=== PATIENT | female | born 1995 | race Caucasian/White ===

== ENCOUNTER 2019-06-21 15:22 | Emergency (ER) | payer OTHER ==
--- NOTE | 2019-06-21 15:56 | ER Document Report ---
ED Medical Screen (RME) - General Chief Complaint: Abdominal Pain Stated Complaint: ABDOMINAL PAIN Time Seen by Provider: 06/21/19 15:54 Primary Care Provider: IZAIAH PEREZ MD [Primary Care Provider] - Follow up as needed TRAVEL OUTSIDE OF THE [place] IN LAST 30 DAYS: No - HPI Notes: 06/21/19 15:55 Patient is a 23-year-old female with no significant past medical history who p resents complaining of lower pelvic/abdominal pain that is been somewhat intermittent, but present since yesterday. She has not noticed any vaginal discharge, odor, or bleeding. Last menstrual cycle was 4 months ago which is a little longer than her normal irregularity. She is able to eat and drink without difficulty's, but has had a decreased p.o. intake. She is urinating normally and having normal bowel movements. She did take a test about a month ago which was negative. Denies HELTON, fever, neck pain, URI, CP, SOB, n/v/d, dysuria, back pain, or rash. I have treated and performed a rapid initial assessment of this patient. A comprehensive ED assessment and evaluation of the patient, analysis of test results and completion of medical decision making process will be conducted by additional ED providers. PHYSICAL EXAMINATION: GENERAL: Well-appearing, well-nourished and in no acute distress. A&Ox4. Answers questions appropriately. LUNGS: Breath sounds clear to auscultation bilaterally and equal. No wheezes rales or rhonchi. HEART: Regular rate and rhythm without murmurs, rubs, gallops. ABDOMEN: Soft, nondistended abdomen. No guarding, no rebound. Normal bowel sounds present. No CVA tenderness bilaterally. + mild lower abd/pelvic tenderness (cannot elicit thorough abd exam w/o bed, however). - Related Data Allergies/Adverse Reactions: all cillins Allergy (Uncoded 06/21/19 15:23) Past Medical History Pulmonary Medical History: Reports: Hx Asthma Past Surgical History: Reports: Hx Tonsillectomy - Immunizations Immunizations up to date: Yes Hx Diphtheria, Pertussis, Tetanus Vaccination: Yes Physical Exam - Vital signs Vitals: Temp Pulse Resp BP Pulse Ox 98.8 F 83 20 123/73 99 06/21/19 15:31 06/21/19 15:31 06/21/19 15:31 06/21/19 15:31 06/21/19 15:31 Course - Vital Signs Vital signs: Temp Pulse Resp BP Pulse Ox 98.8 F 83 20 123/73 99 06/21/19 15:31 06/21/19 15:31 06/21/19 15:31 06/21/19 15:31 06/21/19 15:31 Doctor's Discharge - Discharge Referrals: IZAIAH PEREZ MD [Primary Care Provider] - Follow up as needed
--- NOTE | 2019-06-21 16:55 | RADIOLOGY REPORT (SQ) ---
EXAM DESCRIPTION: U/S 1TRIMESTER/1GEST W/DOPPLER COMPLETED DATE/TIME: 06/21/2019 4:39 pm REASON FOR STUDY: pelvic cramps/lower abd pain COMPARISON: None. TECHNIQUE: Transvaginal static and realtime grayscale images acquired of the pelvis. Additional avinash cted spectral and color Doppler images recorded. All images stored on PACs. bHCG: Not applicable. CLINICAL DATES: LMP about 4 months ago LIMITATIONS: None. FINDINGS: FETUS: Single Living intrauterine . ULTRASOUND EGA: 13 weeks 5 days ULTRASOUND TOI: 12/22/2019 EFW: Not applicable less than 20 weeks. CRL: 7.7 cm FHR: 152 beats per minute. SURVEY: Too early to assess. AMNIOTIC FLUID: Adequate amount. PLACENTA: Posterior SUBCHORIONIC BLEED: No SIZE OF BLEED: Not applicable. UTERUS: No masses. No anomalies. CERVICAL LENGTH: 2.2 cm. Closed. RIGHT ADNEXA: Normal ovary with normal vascular flow. 3.2 x 3 x 1.3 cm. No adnexal free fluid. No adnexal masses. LEFT ADNEXA: Normal ovary with normal vascular flow. 2.4 x 1.7 x 1.9 cm. No adnexal free fluid. No adnexal masses. FREE FLUID: None. OTHER: No other significant finding. IMPRESSION: LIVING INTRAUTERINE . EGA 13 weeks 5 days. Trimester of : Second trimester - 13 weeks 1 day to 27 weeks 6 days. TECHNICAL DOCUMENTATION: JOB ID: [id number] [employer]- All Rights Reserved rev Reading location - IP/workstation name: [email or web address]
[2019-06-21 16:56] LABS: MEAN CORPUSCULAR VOLUME 86 fl (80-97); RED CELL DISTRIBUTION WIDTH 14.2 % (11.5-14.0); TOTAL CELLS COUNTED % (AUTO) 100 %
[2019-06-21 16:59] LABS: ABSOLUTE BASOPHILS # (AUTO) 0.1 10^3/uL (0.0-0.2); ABSOLUTE EOSINOPHILS # (AUTO) 0.1 10^3/uL (0.0-0.6); ABSOLUTE LYMPHOCYTES (AUTO) 1.6 10^3/uL (0.5-4.7); ABSOLUTE MONOCYTES (AUTO) 0.5 10^3/uL (0.1-1.4); ABSOLUTE NEUT (AUTO) 10.2 10^3/uL (1.7-8.2); BASOPHILS % (AUTO) 0.4 % (0-2); EOSINOPHILS % (AUTO) 0.4 % (0-6); HEMATOCRIT 41.4 % (36.0-47.0); HEMOGLOBIN 14.3 g/dL (12.0-15.5); LYMPHOCYTES % (AUTO) 12.9 % (13-45); MEAN CORPUSCULAR HEMOGLOBIN 29.8 pg (27.0-33.4); MEAN CORPUSCULAR HGB CONC 34.4 g/dL (32.0-36.0); MONOCYTES % (AUTO) 4.3 % (3-13); PLATELET COUNT 299 10^3/uL (150-450); RED BLOOD COUNT 4.79 10^6/uL (3.72-5.28); WHITE BLOOD COUNT 12.4 10^3/uL (4.0-10.5)
[2019-06-21 17:01] LABS: APPEARANCE,URINE SLIGHTLY-CLOUDY; BILIRUBIN,URINE NEGATIVE (NEGATIVE); COLOR,URINE YELLOW; GLUCOSE, URINE NEGATIVE (NEGATIVE); KETONES,URINE NEGATIVE (NEGATIVE); LEUKOCYTE ESTERASE,URINE TRACE (NEGATIVE); NITRITE,URINE NEGATIVE (NEGATIVE); PROTEIN,URINE NEGATIVE (NEGATIVE); UROBILINOGEN,URINE NEGATIVE mg/dL (<2.0)
[2019-06-21 17:23] LABS: ALBUMIN 4.1 g/dL (3.5-5.0); ALKALINE PHOSPHATASE 79 U/L (38-126); ANION GAP 9 (5-19); ASPARTATE AMINO TRANSFERASE 24 U/L (14-36); BILIRUBIN,DIRECT 0.2 mg/dL (0.0-0.4); BILIRUBIN,TOTAL 0.7 mg/dL (0.2-1.3); BLOOD UREA NITROGEN 8 mg/dL (7-20); CALCIUM 9.6 mg/dL (8.4-10.2); CARBON DIOXIDE 25 mmol/L (22-30); CHLORIDE 103 mmol/L (98-107); GLUCOSE 84 mg/dL (75-110); TOTAL PROTEIN 7.2 g/dL (6.3-8.2)
--- NOTE | 2019-06-21 17:43 | ER Document Report ---
ED General - General Chief Complaint: Abdominal Pain Stated Complaint: ABDOMINAL PAIN Time Seen by Provider: 06/21/19 15:54 Primary Care Provider: IZAIAH PEREZ MD [ACTIVE STAFF] - Follow up as needed Notes: 23-year-old female with no significant past medical history who presents complaining of lower pelvic/abdominal pain that is been somewhat intermittent, but present since yesterday. She has not noticed any vaginal discharge, odor, or bleeding. Last menstrual cycle was 4 months ago which is a little longer than her normal irregularity. She is able to eat and drink without difficulty's, but has had a decreased p.o. intake. She is urinating normally and having normal bowel movements. She did take a test about a month ago which was negative. Denies [place], fever, neck pain, URI, CP, SOB, n/v/d, dysuria, back pain, or rash. TRAVEL OUTSIDE OF THE [place] IN LAST 30 DAYS: No - Related Data Allergies/Adverse Reactions: all cillins Allergy (Uncoded 06/21/19 15:23) Past Medical History - Social History Smoking Status: Never Smoker Frequency of alcohol use: Occasional Drug Abuse: None Family History: Reviewed & Not Pertinent Patient has suicidal ideation: No Patient has homicidal ideation: No Pulmonary Medical History: Reports: Hx Asthma Renal/ Medical History: Denies: Hx Peritoneal Dialysis Past Surgical History: Reports: Hx Tonsillectomy - Immunizations Immunizations up to date: Yes Hx Diphtheria, Pertussis, Tetanus Vaccination: Yes Review of Systems - Review of Systems Constitutional: See HPI EENT: No symptoms reported Cardiovascular: See HPI Respiratory: See HPI Gastrointestinal: See HPI Genitourinary: See HPI Female Genitourinary: See HPI - I Musculoskeletal: See HPI Skin: No symptoms reported Hematologic/Lymphatic: No symptoms reported Neurological/Psychological: No symptoms reported Physical Exam - Vital signs Vitals: Temp Pulse Resp BP Pulse Ox 98.8 F 83 20 123/73 99 06/21/19 15:31 06/21/19 15:31 06/21/19 15:31 06/21/19 15:31 06/21/19 15:31 - Notes Notes: PHYSICAL EXAMINATION: Reviewed vital signs and charting by RN GENERAL: Alert, interacts well. No acute distress. HEAD: Normocephalic, atraumatic. EYES: Pupils equal and round. Extraocular movements intact. ENT: Oral mucosa moist, tongue midline. NECK: Full range of motion. Trachea midline. LUNGS: Clear to auscultation bilaterally, no wheezes, rales, or rhonchi. No respiratory distress. HEART: Regular rate and rhythm. No murmur ABDOMEN: soft, mild tenderness to palpation bilateral adnexal area. No distention. Bowel sounds present EXTREMITIES: Moves all 4 extremities spontaneously. No edema, No cyanosis. PSYCH: Normal affect, normal mood. SKIN: Warm, dry, normal turgor. No rashes or lesions noted. Course - Re-evaluation Re-evalutation: 06/21/19 17:45 Patient is well-appearing and nontoxic. Transvaginal ultrasound ordered which was converted to an abdominal ultrasound this patient is 13 weeks 5 days . Patient did not know this. No abnormal vaginal discharge or any other concerning symptoms. This is most likely stretching of the round ligaments and expanding of the uterus. There is no other concerning findings and ultrasound. Patient has been given a copy of the report. She is stable for discharge. She does not want referral to [facility] because she recently moved to [place]. - Vital Signs Vital signs: Temp Pulse Resp BP Pulse Ox 98.8 F 83 20 123/73 99 06/21/19 15:31 06/21/19 15:31 06/21/19 15:31 06/21/19 15:31 06/21/19 15:31 - Laboratory Result Diagrams: 06/21/19 16:43 06/21/19 16:43 Laboratory results interpreted by me: 06/21/19 06/21/19 06/21/19 16:05 16:43 16:43 WBC 12.4 H RDW 14.2 H Seg Neutrophils % 82.0 H Lymphocytes % 12.9 L Absolute Neutrophils 10.2 H Sodium 136.9 L Ur Leukocyte Esterase TRACE H Urine Ascorbic Acid 20 H Urine HCG, Qual POSITIVE H Discharge - Discharge Clinical Impression: Qualifiers: Weeks of gestation: 13 weeks Qualified Code(s): Z3A.13 - 13 weeks gestation of Condition: Good Disposition: HOME, SELF-CARE Additional Instructions: You were seen in the emergency department this afternoon for abdominal pain. The cause of your abdominal pain is . This is most likely explained by your round ligament stretching in your uterus expanding. Please establish care with an PROPERTY STAFF ACCOUNTANT as I understand you are moving and do not want referral to [facility]. If you develop severe intractable abdominal pain, vaginal bleeding, intractable nausea or vomiting, or you have any other concerning symptoms please return to the emergency department for reevaluation. Referrals: IZAIAH PEREZ MD [ACTIVE STAFF] - Follow up as needed
[2019-06-21 17:48] VITALS: BP 128/70
== END 2019-06-21 17:48 | disposition home or self-care (01) ==
LOC: ER 15:22
DX: O26.91 Pregnancy related conditions, unspecified, first trimester (principal); R10.30 Lower abdominal pain, unspecified; R10.2 Pelvic and perineal pain; Z3A.13 13 weeks gestation of pregnancy
CPT/HCPCS: 36415; 76801; 80053; 81001; 81025; 83690; 85025; 93976

== ENCOUNTER → 2019-11-07 | Outpatient (CLI) | payer OTHER, MEDICAID ==
--- NOTE | 2019-11-07 11:52 | RADIOLOGY REPORT (SQ) ---
EXAM DESCRIPTION: VENOUS UNILATERAL LOWER COMPLETED DATE/TIME: 11/07/2019 11:43 am REASON FOR STUDY: RLE SWELLING M79.604 PAIN IN RIGHT LEG COMPARISON: None. TECHNIQUE: Dynamic and static cristina scale and color images acquired of the right arm venous system. S elected spectral images acquired with additional compression and augmentation maneuvers. The contrala teral subclavian vein and internal jugular vein were also imaged. Images stored on PACS. LIMITATIONS: None. FINDINGS: INTERNAL JUGULAR VEIN: Normal phasicity, compression, augmentation. No visualized echogeni c material on cristina scale. No defects on color images. Comparison opposite side normal. SUBCLAVIAN VEIN: Normal compression, augmentation. No visualized echogenic material on cristina scale. No defects on color images. AXILLARY VEIN: Normal compression, augmentation. No visualized echogenic material on cristina scale. No d efects on color images. BRACHIAL VEIN: Normal compression, augmentation. No visualized echogenic material on cristina scale. No d efects on color images. BASILIC VEIN: Normal compression, augmentation. No visualized echogenic material on cristina scale. No de fects on color images. CEPHALIC VEIN: Normal compression, augmentation. No visualized echogenic material on cristina scale. No d efects on color images. OTHER: No other significant finding. CONTRALATERAL SUBCLAVIAN VEIN AND INTERNAL JUGULAR VEIN: Normal phasicity, compression and augmentation. No visualized echogenic material on cristina scale. No de fects on color images. IMPRESSION: NO EVIDENCE DVT OR SVT IN THE RIGHT ARM. TECHNICAL DOCUMENTATION: JOB ID: [id number] [employer]- All Rights Reserved Reading location - IP/workstation name: [email or web address]
== END ==
LOC: SP 10:47
PROVIDERS: ATTEND Specialist
DX: M79.604 Pain in right leg (principal); M79.89 Other specified soft tissue disorders
CPT/HCPCS: 93971

== ENCOUNTER 2019-12-05 10:20 | Outpatient (CLI) | payer BC, MEDICAID ==
--- NOTE | 2019-12-05 11:00 | Non Stress Test Report ---
Non Stress Test Datetime Report Generated by CPN: 12/05/2019 11:00 DEMOGRAPHIC Test Number: 1 EGA NST: 37.4 INDICATION Indication for Study (NST) Other: repeat NST NR in office VITAL SIGNS Temperature - NST: 98.0 Pulse - NST: 103 RESP - NST: 16 NBPSYS NST: 115 NBPDIA NST: 83 MONITORING Monitor Explained: Monitor Explained; Test Explained; Patient Verbalized Understanding Time on Monitor: 12/05/2019 10:27 Time off Monitor: 12/05/2019 10:56 NST Duration: 29 NST INTERVENTIONS NST Interventions: PO Hydration Physician Notified NST: JCox,CNM Physician Notified NST: J Martinez CNM BABY A: [id number] BABY A Movement : Present Contraction Frequency : 0 FHR Baseline : 150 Accelerations : 15X15 Decelerations : None Variability : Moderate 6-25bpm NST Review: Meets Criteria for Reactive NST NST Review and Verified By : TMartin,RN NST Results: Reactive NST COMMENTS NST Comments: Keep scheduled appt NST REPORT Report Trigger: Send Report
== END 2019-12-05 11:04 | disposition home or self-care (01) ==
LOC: LC 10:20
PROVIDERS: ATTEND Student in an Organized Health Care Education/Training Program
PROC: 4A1HXCZ Monitoring of Products of Conception, Cardiac Rate, External Approach (ICD-10-PCS; principal; 2019-12-05)
DX: Z34.03 Encounter for supervision of normal first pregnancy, third trimester (principal); Z3A.37 37 weeks gestation of pregnancy
CPT/HCPCS: 59025

== ENCOUNTER 2019-12-08 09:55 | Inpatient (IN) | payer BC, MEDICAID ==
[2019-12-08 10:48] LABS: APPEARANCE,URINE SLIGHTLY-CLOUDY; BILIRUBIN,URINE NEGATIVE (NEGATIVE); COLOR,URINE YELLOW; GLUCOSE, URINE NEGATIVE (NEGATIVE); KETONES,URINE NEGATIVE (NEGATIVE); LEUKOCYTE ESTERASE,URINE LARGE (NEGATIVE); NITRITE,URINE NEGATIVE (NEGATIVE); PROTEIN,URINE NEGATIVE (NEGATIVE); URINE SPECIFIC GRAVITY 1.002; UROBILINOGEN,URINE NEGATIVE mg/dL (<2.0)
[2019-12-08 11:05] LABS: URINE AMPHETAMINES SCREEN NEGATIVE; URINE BARBITURATES SCREEN NEGATIVE; URINE BENZODIAZEPINES SCREEN NEGATIVE; URINE COCAINE SCREEN NEGATIVE; URINE MARIJUANA (THC) SCREEN NEGATIVE; URINE METHADONE SCREEN NEGATIVE; URINE PHENCYCLIDINE SCREEN NEGATIVE
[2019-12-08 11:10] LABS: URINE CREATININE 18.1 mg/dL (16-327); URINE PROTEIN 18.2 mg/dL (<12)
[2019-12-08 11:45] LABS: ABSOLUTE BASOPHILS # (AUTO) 0.1 10^3/uL (0.0-0.2); ABSOLUTE EOSINOPHILS # (AUTO) 0.1 10^3/uL (0.0-0.6); ABSOLUTE LYMPHOCYTES (AUTO) 1.7 10^3/uL (0.5-4.7); ABSOLUTE MONOCYTES (AUTO) 0.9 10^3/uL (0.1-1.4); ABSOLUTE NEUT (AUTO) 7.7 10^3/uL (1.7-8.2); BASOPHILS % (AUTO) 1.1 % (0-2); EOSINOPHILS % (AUTO) 1.1 % (0-6); HEMATOCRIT 36.9 % (36.0-47.0); HEMOGLOBIN 12.9 g/dL (12.0-15.5); LYMPHOCYTES % (AUTO) 16.3 % (13-45); MEAN CORPUSCULAR HEMOGLOBIN 29.6 pg (27.0-33.4); MEAN CORPUSCULAR VOLUME 85 fl (80-97); MONOCYTES % (AUTO) 8.7 % (3-13); PLATELET COUNT 202 10^3/uL (150-450); RED BLOOD COUNT 4.36 10^6/uL (3.72-5.28); RED CELL DISTRIBUTION WIDTH 15.5 % (11.5-14.0); SEGMENTED NEUTROPHILS % (AUTO) 72.8 % (42-78); TOTAL CELLS COUNTED % (AUTO) 100 %; WHITE BLOOD COUNT 10.6 10^3/uL (4.0-10.5)
[2019-12-08 12:12] LABS: ALBUMIN 3.1 g/dL (3.5-5.0); ALKALINE PHOSPHATASE 158 U/L (38-126); ANION GAP 10 (5-19); ASPARTATE AMINO TRANSFERASE 27 U/L (14-36); BILIRUBIN,DIRECT 0.2 mg/dL (0.0-0.4); BILIRUBIN,TOTAL 0.6 mg/dL (0.2-1.3); BLOOD UREA NITROGEN 7 mg/dL (7-20); CALCIUM 9.7 mg/dL (8.4-10.2); CARBON DIOXIDE 21 mmol/L (22-30); CHLORIDE 105 mmol/L (98-107); TOTAL PROTEIN 5.9 g/dL (6.3-8.2); URIC ACID 6.6 mg/dL (2.5-6.2)
[2019-12-08 12:16] LABS: GLUCOSE 61 mg/dL (75-110)
--- NOTE | 2019-12-08 14:23 | Admission Physical ---
Datetime Report Generated by CPN: 12/08/2019 14:23 CURRENT ADMISSION Chief Complaint: Sent from OB Office for Evaluation and Treatment - Please Specify Indication for Induction- Other: Plan to induce labor if elevated BPs or elevated 24*urine Admit Impression : Term, Intrauterine ; No Active Labor; Observation/Evaluation Admit Impression- Other: Pr/Cr ratio 1.0 uric acid 6.6 AM labs ordered pt to start 24*urine on PP unit Admit Plan: Observation/Evaluation Admit Plan- Other: Asymptomatic ALLERGIES Medication Allergies: Yes Medication Allergies: All Cillins Latex: No Latex Allergies OBSTETRICAL HISTORY EDC: 12/22/2019 00:00 : 1 Para: 0 Term: 0 : 0 SAB: 0 IAB: 0 Ectopic: 0 Livin Cesareans: 0 VBACs: 0 Multiple Births: 0 PHYSICAL EXAM General: Normal HEENT: Deferred Neurologic: Normal Thyroid: Deferred Heart: Normal Lungs: Normal Breast: Deferred Back: Deferred Abdomen: Normal Genitourinary Exam: Normal Extremities: Normal DTRs: Normal Pelvic Type: Adequate Vital Signs: Reviewed FETUS A EGA: 38.0 Monitoring: External US FHR- Baseline: 145 Variability: Moderate 6-25bpm Accelerations: 15X15 FHR Category: Category I Presentation: Vertex Admit Comment: Pt agrees to stay for 24 urine/evaluation for Pre-Eclampsia SGA with 2 wk AC lag Hx Chlamydia during INFORMED CONSENT Assignment: Carmen Thomas MD Signature: with User ID: [email or web address] : with User ID: [email or web address]
--- NOTE | 2019-12-08 14:26 | Non Stress Test Report ---
Non Stress Test Datetime Report Generated by CPN: 12/08/2019 14:26 DEMOGRAPHIC EGA NST: 38.0 INDICATION Indication for Study (NST) Other: IUP @ 38.0 proteinuria MONITORING Monitor Explained: Monitor Explained; Test Explained; Patient Verbalized Understanding Time on Monitor: 12/08/2019 10:12 Time off Monitor: 12/08/2019 11:18 NST Duration: 66 NST INTERVENTIONS NST Interventions: PO Hydration; Reposition Patient Physician Notified NST: Fanny Hyde, CNM BABY A: [id number] BABY A Movement : Present Contraction Frequency : 0 FHR Baseline : 140 Accelerations : 15X15 Decelerations : None Variability : Moderate 6-25bpm NST Review: Meets Criteria for Reactive NST NST Review and Verified By : sautry NST Results: Reactive NST REPORT Report Trigger: Send Report
[2019-12-08] MEDS ORDERED: RINGERS SOLUTION,LACTATED 1,000 ML IV PRN (21:57)
[2019-12-08] MEDS ORDERED: DINOPROSTONE 10 MG VAGINAL INSERT.SR ONE (22:05)
[2019-12-08] MEDS ORDERED: DINOPROSTONE 10 MG VAGINAL INSERT.SR PV ONE (22:30)
[2019-12-08] MEDS ORDERED: RINGERS SOLUTION,LACTATED 500 ML IV ONE (22:30)
[2019-12-08 23:32] LABS: ABSOLUTE EOSINOPHILS # (AUTO) 0.1 10^3/uL (0.0-0.6); ABSOLUTE LYMPHOCYTES (AUTO) 2.3 10^3/uL (0.5-4.7); ABSOLUTE MONOCYTES (AUTO) 0.8 10^3/uL (0.1-1.4); ABSOLUTE NEUT (AUTO) 7.4 10^3/uL (1.7-8.2); BASOPHILS % (AUTO) 0.3 % (0-2); EOSINOPHILS % (AUTO) 0.7 % (0-6); HEMATOCRIT 36.7 % (36.0-47.0); HEMOGLOBIN 12.9 g/dL (12.0-15.5); LYMPHOCYTES % (AUTO) 21.5 % (13-45); MEAN CORPUSCULAR HEMOGLOBIN 29.6 pg (27.0-33.4); MEAN CORPUSCULAR HGB CONC 35.1 g/dL (32.0-36.0); MEAN CORPUSCULAR VOLUME 84 fl (80-97); MONOCYTES % (AUTO) 7.9 % (3-13); PLATELET COUNT 230 10^3/uL (150-450); RED BLOOD COUNT 4.36 10^6/uL (3.72-5.28); RED CELL DISTRIBUTION WIDTH 15.5 % (11.5-14.0); SEGMENTED NEUTROPHILS % (AUTO) 69.6 % (42-78); TOTAL CELLS COUNTED % (AUTO) 100 %; WHITE BLOOD COUNT 10.7 10^3/uL (4.0-10.5)
[2019-12-08 23:53] LABS: ALBUMIN 3.1 g/dL (3.5-5.0); ALKALINE PHOSPHATASE 168 U/L (38-126); ANION GAP 10 (5-19); ASPARTATE AMINO TRANSFERASE 25 U/L (14-36); BILIRUBIN,DIRECT 0.1 mg/dL (0.0-0.4); BILIRUBIN,TOTAL 0.7 mg/dL (0.2-1.3); BLOOD UREA NITROGEN 6 mg/dL (7-20); CALCIUM 9.1 mg/dL (8.4-10.2); CARBON DIOXIDE 23 mmol/L (22-30); CHLORIDE 104 mmol/L (98-107); POTASSIUM 3.8 mmol/L (3.6-5.0); TOTAL PROTEIN 5.9 g/dL (6.3-8.2); URIC ACID 5.8 mg/dL (2.5-6.2)
[2019-12-08 23:55] LABS: GLUCOSE 59 mg/dL (75-110)
[2019-12-09] MEDS ORDERED: ZOLPIDEM TARTRATE 5 MG TABLET ONE (01:05)
[2019-12-09 07:50] LABS: ABSOLUTE BASOPHILS # (AUTO) 0.1 10^3/uL (0.0-0.2); ABSOLUTE EOSINOPHILS # (AUTO) 0.1 10^3/uL (0.0-0.6); ABSOLUTE LYMPHOCYTES (AUTO) 1.8 10^3/uL (0.5-4.7); ABSOLUTE MONOCYTES (AUTO) 0.7 10^3/uL (0.1-1.4); BASOPHILS % (AUTO) 0.7 % (0-2); EOSINOPHILS % (AUTO) 0.6 % (0-6); HEMATOCRIT 39.4 % (36.0-47.0); HEMOGLOBIN 13.7 g/dL (12.0-15.5); LYMPHOCYTES % (AUTO) 15.6 % (13-45); MEAN CORPUSCULAR HEMOGLOBIN 29.4 pg (27.0-33.4); MEAN CORPUSCULAR HGB CONC 34.8 g/dL (32.0-36.0); MEAN CORPUSCULAR VOLUME 85 fl (80-97); MONOCYTES % (AUTO) 6.3 % (3-13); PLATELET COUNT 249 10^3/uL (150-450); RED BLOOD COUNT 4.66 10^6/uL (3.72-5.28); RED CELL DISTRIBUTION WIDTH 15.1 % (11.5-14.0); SEGMENTED NEUTROPHILS % (AUTO) 76.8 % (42-78); TOTAL CELLS COUNTED % (AUTO) 100 %; WHITE BLOOD COUNT 11.8 10^3/uL (4.0-10.5)
[2019-12-09 08:01] LABS: ALBUMIN 3.3 g/dL (3.5-5.0); ALKALINE PHOSPHATASE 176 U/L (38-126); ANION GAP 8 (5-19); ASPARTATE AMINO TRANSFERASE 23 U/L (14-36); BILIRUBIN,TOTAL 0.7 mg/dL (0.2-1.3); BLOOD UREA NITROGEN 5 mg/dL (7-20); CALCIUM 10.2 mg/dL (8.4-10.2); CARBON DIOXIDE 24 mmol/L (22-30); CHLORIDE 105 mmol/L (98-107); GLUCOSE 74 mg/dL (75-110); TOTAL PROTEIN 5.9 g/dL (6.3-8.2)
[2019-12-09] MEDS ORDERED: OXYTOCIN 10 UNIT/ML VIAL ONE (11:42)
[2019-12-09] MEDS ORDERED: NALBUPHINE HCL INJ 10 MG/1 ML AMPULE ONE (11:42)
[2019-12-09] MEDS ORDERED: LIDOCAINE 1% INJ-PF (10 MG/ML) 30 ML SDV ONE (11:43)
[2019-12-09] MEDS ORDERED: MISOPROSTOL 0.2 MG TABLET ONE (11:43)
[2019-12-09] MEDS ORDERED: PROMETHAZINE HCL INJ 25 MG/1 ML VIAL ONE (11:43)
[2019-12-09] MEDS ORDERED: OXYTOCIN/NORMAL SALINE 20 UNIT/1,000 ML RTUINJ ONE (11:43)
[2019-12-09] MEDS ORDERED: PROMETHAZINE HCL INJ 25 MG/1 ML VIAL IV ONE (11:45)
[2019-12-09] MEDS ORDERED: NALBUPHINE HCL INJ 10 MG/1 ML AMPULE INJ ONE (11:45)
[2019-12-09] MEDS ORDERED: VANCOMYCIN HCL INJ 1000 MG VIAL IV SCH (12:00)
[2019-12-09] MEDS ORDERED: VANCOMYCIN HCL INJ 1000 MG VIAL ONE (12:03)
[2019-12-09 21:33] LABS: ABSOLUTE BASOPHILS # (AUTO) 0.1 10^3/uL (0.0-0.2); ABSOLUTE MONOCYTES (AUTO) 0.9 10^3/uL (0.1-1.4); ABSOLUTE NEUT (AUTO) 10.9 10^3/uL (1.7-8.2); BASOPHILS % (AUTO) 0.5 % (0-2); EOSINOPHILS % (AUTO) 0.3 % (0-6); HEMATOCRIT 38.2 % (36.0-47.0); HEMOGLOBIN 12.9 g/dL (12.0-15.5); LYMPHOCYTES % (AUTO) 14.3 % (13-45); MEAN CORPUSCULAR HEMOGLOBIN 28.8 pg (27.0-33.4); MEAN CORPUSCULAR HGB CONC 33.9 g/dL (32.0-36.0); MEAN CORPUSCULAR VOLUME 85 fl (80-97); MONOCYTES % (AUTO) 6.2 % (3-13); PLATELET COUNT 227 10^3/uL (150-450); RED BLOOD COUNT 4.49 10^6/uL (3.72-5.28); RED CELL DISTRIBUTION WIDTH 15.1 % (11.5-14.0); SEGMENTED NEUTROPHILS % (AUTO) 78.7 % (42-78); TOTAL CELLS COUNTED % (AUTO) 100 %; WHITE BLOOD COUNT 13.9 10^3/uL (4.0-10.5)
[2019-12-09] MEDS: VANCOMYCIN HCL INJ 1000 MG VIAL IV SCH (21:37)
[2019-12-09] MEDS ORDERED: FENTANYL CITRATE INJ/PF 100 MCG/2 ML AMPUL ONE (22:58)
[2019-12-09] MEDS ORDERED: PHENYLEPHRINE HCL INJ/PF 10 MG/1 ML SDV ONE (22:58)
[2019-12-09] MEDS ORDERED: FENTANYL/BUPIVACAINE/NS/PF 300 MCG/150 ML RTUINJ EPI ONE (22:59)
[2019-12-09] MEDS ORDERED: BUPIVACAINE HCL 0.25 % INJ/PF (2.5 MG/1 ML) 30 ML VIAL ONE (22:59)
[2019-12-09] MEDS ORDERED: EPHEDRINE SULFATE INJ 50 MG/1 ML AMPULE ONE (22:59)
[2019-12-10] MEDS ORDERED: VANCOMYCIN HCL INJ 1000 MG VIAL ONE (01:01)
[2019-12-10] MEDS: VANCOMYCIN HCL INJ 1000 MG VIAL IV SCH ×2 (01:14→18:54)
[2019-12-10] MEDS ORDERED: PROMETHAZINE HCL 25 MG SUPP.RECT PR PRN (03:30)
[2019-12-10] MEDS ORDERED: PROMETHAZINE HCL 25 MG TABLET PO PRN (03:30)
[2019-12-10] MEDS ORDERED: GLYCERIN/WITCH HAZEL LEAF 1 EACH MED..WIPE TP PRN (03:30)
[2019-12-10] MEDS ORDERED: MAGNESIUM HYDROXIDE SUSP 30 ML UDCUP PO PRN (03:30)
[2019-12-10] MEDS ORDERED: OXYTOCIN/NORMAL SALINE 20 UNIT/1,000 ML RTUINJ IV PRN (03:30)
[2019-12-10] MEDS ORDERED: NA PHOS,M-B/NA PHOS,DI-BA (ADULT) 133 ML ENEMA PR PRN (03:30)
[2019-12-10] MEDS ORDERED: MEASLES,MUMPS&RUBELLA VACC/PF 0.5 ML VIAL SUBCUT PRN (03:30)
[2019-12-10] MEDS ORDERED: ZOLPIDEM TARTRATE 5 MG TABLET PO PRN (03:30)
[2019-12-10] MEDS ORDERED: DIPHENHYDRAMINE HCL 25 MG CAPSULE PO PRN (03:30)
[2019-12-10] MEDS ORDERED: PSEUDOEPHEDRINE HCL 30 MG TABLET PO PRN (03:30)
[2019-12-10] MEDS ORDERED: DIPH/PERTUSS(ACELL)/TETANUS VAC/PF 0.5 ML SYR (>=10YO) IM PRN (03:30)
[2019-12-10] MEDS ORDERED: ACETAMINOPHEN 650 MG SUPP.RECT PR PRN (03:30)
[2019-12-10] MEDS ORDERED: BENZOCAINE/MENTHOL AEROSOL SPRAY 56 ML TOP PRN (03:30)
[2019-12-10] MEDS ORDERED: DIBUCAINE 1% OINTMENT 28 GM TP PRN (03:30)
[2019-12-10] MEDS ORDERED: ACETAMINOPHEN WITH CODEINE #3 TABLET PO PRN ×2 (03:30)
[2019-12-10] MEDS ORDERED: PROMETHAZINE HCL INJ 25 MG/1 ML VIAL IV PRN (03:30)
--- NOTE | 2019-12-10 05:02 | Delivery Summary ---
Del Sum A-C Datetime Report Generated by CPN: 12/10/2019 05:02 DELIVERY PERSONNEL DELIVERY PERSONNEL: [id number] Delivery Doctor:: Joanna eSn MD Labor and Delivery Nurse:: [place] Cao RNdot etcher apprentice Nurse:: Maria Antonia Casillas RN Nursery Nurse:: Vidhi Walker RN Water Pollution Specialist/MAXILLOFACIAL PATHOLOGY: Ju Barahona, LENS INSERTER MATERNAL INFORMATION Delivery Anesthesia: Epidural Medications After Delivery: Pitocin Drip 20 Units/1000ml NSS Estimated Blood Loss (ml): 200 Delivery QBL: 276 Maternal Complications: None LABOR SUMMARY EDC: 12/22/2019 00:00 No. Babies in Womb: 1 Attempted: No Labor Anesthesia: Epidural LABOR INFORMATION Reason for Induction: Gestational Hypertension Reason for Induction- Other: IUGR Onset of Labor: 12/09/2019 22:34 Complete Dilatation: 12/10/2019 03:08 Cervical Ripening Agents: Cervidil (Annotations: 10mg placed in posterior fornix ) Oxytocin: Induction Group B Beta Strep: positive Antibiotics # of Doses: 2 Antibiotics Time of Last Dose: 0114 Name of Antibiotic Given: Vancomycin Steroids Given: None Reason Steroids Not Administered: Not Applicable MEMBRANES Membranes Rupture Method: Spontaneous Rupture of Membranes: 12/10/2019 01:30 Length of Rupture (hr): 1.77 Amniotic Fluid Color: Clear Amniotic Fluid Amount: Scant Amniotic Fluid Odor: None STAGES OF LABOR Stage 1 hr: 4 Stage 1 min: 34 Stage 2 hr: 0 Stage 2 min: 8 Stage 3 hr: 0 Stage 3 min: 3 Total Time in Labor hr: 4 Total Time in Labor min: 45 VAGINAL DELIVERY Episiotomy: None Laceration #1: None Laceration Extension #1: N/A Laceration Repair: Not Applicable Sponge Count Correct: N/A Sharps Count Correct: N/A CSECTION DELIVERY Primary Indication: N/A Secondary Indication: N/A CSection Incidence: N/A Labor: N/A Elective: N/A CSection Incision: N/A Uterine Closure: Double-layer closure BABY A INFORMATION Delivery Date/Time: 12/10/2019 03:16 Method of Delivery: Vaginal Born in Route : No : N/A Forceps: N/A Vacuum Extraction: N/A Shoulder Dystocia : No PRESENTATION/POSITION BABY A Presentation: Cephalic Cephalic Presentation: Vertex Breech Presentation: N/A PLACENTA INFORMATION BABY A Placenta Delivery Time : 12/10/2019 03:19 Placenta Method of Delivery: Spontaneous Placenta Status: Delivered SCORES BABY A Heart Rate 1 min: >100 bpm Resp Effort 1 min: Good Cry Reflex Irritability 1 min: Cough or Sneeze or Pulls Away Muscle Tone 1 min: Active Motion Color 1 min: Blue/Pale Resuscitation Effort 1 min: Tactile Stimulation SCORE 1 MIN: 8 Heart Rate 5 min: >100 bpm Resp Effort 5 min: Good Cry Reflex Irritability 5 min: Cough or Sneeze or Pulls Away Muscle Tone 5 min: Active Motion Color 5 min: Body [place], Extremities Blue Resuscitation Effort 5 min: Tactile Stimulation SCORE 5 MIN: 9 INFORMATION BABY A Gestational Age at Delivery: 38.2 Gestational Status: Early Term- 37- 38.6 Weeks Outcome : Liveborn Infant Condition : Stable Infant Sex: Female IDENTIFICATION BABY A Infant Verification Date/Time: 12/10/2019 03:43 ID Band Number: [id number] Mother's Name Verified: Yes Infant RN Verifying : JNiebuhr,RN Additional Verifying Personnel: SGordon,LENS INSERTER WEIGHT/LENGTH BABY A Infant Birthweight (gm): 2500 Weight (lb): 5 Weight (oz): 8 Length (in): 18.00 Length (cm): 45.72 CORD INFORMATION BABY A No. Cord Vessels: 3 Nuchal Cord : Around Neck x1, Loose Cord Blood Taken: Yes-For Eval (Mom's Blood Type - or O+) Infant Suction: None BABY B INFORMATION : N/A SIGNATURES Signature: with User ID: Ana : I was personally available for consultation and serving as supervising physician for the MLP.
[2019-12-10] MEDS: IBUPROFEN 800 MG TABLET PO SCH ×3 (05:53→21:30)
[2019-12-10] MEDS: FERROUS SULFATE 325 MG TABLET PO SCH ×2 (10:45→17:59)
[2019-12-10] MEDS: SENNOSIDES/DOCUSATE 8.6-50 MG 1 EACH TABLET PO SCH (10:45)
[2019-12-10] MEDS: FAMOTIDINE 20 MG TABLET PO SCH ×2 (10:45→21:30)
[2019-12-10] MEDS: DOCUSATE SODIUM 100 MG CAPSULE PO SCH ×2 (10:46→17:59)
[2019-12-10] MEDS: PRENATAL VITAMIN W DHA CAPSULE PO SCH (10:46)
--- NOTE | 2019-12-10 10:52 | PDOC PROGRESS REPORT ---
Subjective-OB Progress Note for:: 12/10/19 Subjective: Pt is doing well, reports reg diet, light bleeding and voiding without difficulty. No concerns. Physical Exam (OB) Vital Signs: Temp Pulse Resp BP Pulse Ox 98.0 F 98 16 118/72 97 12/10/19 07:34 12/10/19 07:34 12/10/19 07:34 12/10/19 07:34 12/10/19 07:34 Intake & Output 12/09/19 12/10/19 12/11/19 06:59 06:59 06:59 Weight 69.9 kg - PIH/Pre-Eclampsia Clonus: Negative Headache: Absent Epigastric Pain: No Visual Changes: No - Lochia Lochia Amount: Small 10-25 ml Lochia Color: Rubra/Red - Abdomen Description: Soft Hernia Present: No Fundal Description: Firm, Midline Fundal Height: u/u - u/2 Objective-Diagnostic Laboratory: 12/09/19 21:19 12/09/19 07:15 12/09/19 21:19 WBC 13.9 H RBC 4.49 Hgb 12.9 Hct 38.2 MCV 85 MCH 28.8 MCHC 33.9 RDW 15.1 H Plt Count 227 Seg Neutrophils % 78.7 H Assessment and Plan(PN) - Assessment and Plan (1) (spontaneous vaginal delivery) Is this a current diagnosis for this admission?: Yes (2) Pre-eclampsia Qualifiers: Trimester: third trimester Qualified Code(s): O14.93 - Unspecified pre- eclampsia, third trimester Is this a current diagnosis for this admission?: Yes (3) Proteinuria affecting in third trimester Is this a current diagnosis for this admission?: Yes - Time Spent with Patient Time with patient: Less than 15 minutes Medications reviewed and adjusted accordingly: Yes - Disposition Anticipated Discharge: Home Within: within 24 hours
[2019-12-11] MEDS: VANCOMYCIN HCL INJ 1000 MG VIAL IV SCH ×2 (04:35→14:32)
[2019-12-11] MEDS: IBUPROFEN 800 MG TABLET PO SCH ×3 (05:20→21:51)
[2019-12-11 07:26] LABS: HEMATOCRIT 32.9 % (36.0-47.0); HEMOGLOBIN 11.2 g/dL (12.0-15.5); MEAN CORPUSCULAR HEMOGLOBIN 29.2 pg (27.0-33.4); MEAN CORPUSCULAR HGB CONC 34.2 g/dL (32.0-36.0); MEAN CORPUSCULAR VOLUME 85 fl (80-97); PLATELET COUNT 200 10^3/uL (150-450); RED BLOOD COUNT 3.86 10^6/uL (3.72-5.28); RED CELL DISTRIBUTION WIDTH 15.2 % (11.5-14.0); WHITE BLOOD COUNT 12.4 10^3/uL (4.0-10.5)
[2019-12-11] MEDS: DOCUSATE SODIUM 100 MG CAPSULE PO SCH ×2 (09:41→17:39)
[2019-12-11] MEDS: SENNOSIDES/DOCUSATE 8.6-50 MG 1 EACH TABLET PO SCH (09:41)
[2019-12-11] MEDS: PRENATAL VITAMIN W DHA CAPSULE PO SCH (09:43)
[2019-12-11] MEDS: FERROUS SULFATE 325 MG TABLET PO SCH ×2 (09:44→17:39)
[2019-12-11] MEDS: FAMOTIDINE 20 MG TABLET PO SCH ×2 (09:45→21:51)
--- NOTE | 2019-12-11 10:30 | PDOC PROGRESS REPORT ---
Subjective-OB Progress Note for:: 12/11/19 Subjective: reports bleeding slowing, pain controlled with current meds. denies needs Physical Exam (OB) Vital Signs: Temp Pulse Resp BP Pulse Ox 97.3 F 69 16 121/79 99 12/11/19 07:26 12/11/19 07:26 12/11/19 07:26 12/11/19 07:26 12/11/19 07:26 - Abdomen Description: Soft, Round Hernia Present: No Fundal Description: Firm, Midline Fundal Height: u/u - u/2 - Abdominal Distension: No distension Tenderness: Nontender - Extremities Lower extremities: Aleisha's sign - neg Calf: Normal, Nontender Objective-Diagnostic Laboratory: 12/11/19 06:31 12/09/19 07:15 12/11/19 06:31 WBC 12.4 H RBC 3.86 Hgb 11.2 L Hct 32.9 L MCV 85 MCH 29.2 MCHC 34.2 RDW 15.2 H Plt Count 200 Assessment and Plan(PN) - Assessment and Plan (1) Pre-eclampsia Qualifiers: Trimester: third trimester Qualified Code(s): O14.93 - Unspecified pre- eclampsia, third trimester Is this a current diagnosis for this admission?: Yes (2) (spontaneous vaginal delivery) Is this a current diagnosis for this admission?: Yes - Time Spent with Patient Time with patient: Less than 15 minutes Medications reviewed and adjusted accordingly: Yes - Disposition Anticipated Discharge: Home Within: within 24 hours
[2019-12-12] MEDS: VANCOMYCIN HCL INJ 1000 MG VIAL IV SCH (02:19)
[2019-12-12] MEDS: IBUPROFEN 800 MG TABLET PO SCH (06:05)
[2019-12-12] MEDS: SENNOSIDES/DOCUSATE 8.6-50 MG 1 EACH TABLET PO SCH (09:12)
[2019-12-12] MEDS: FERROUS SULFATE 325 MG TABLET PO SCH (09:12)
[2019-12-12] MEDS: FAMOTIDINE 20 MG TABLET PO SCH (09:12)
[2019-12-12] MEDS: PRENATAL VITAMIN W DHA CAPSULE PO SCH (09:12)
[2019-12-12] MEDS: DOCUSATE SODIUM 100 MG CAPSULE PO SCH (09:13)
--- NOTE | 2019-12-12 10:27 | PDOC PROGRESS REPORT ---
Subjective-OB Progress Note for:: 12/12/19 Subjective: Doing well, no c/o, ready to go home Physical Exam (OB) Vital Signs: Temp Pulse Resp BP Pulse Ox 97.8 F 69 14 143/98 H 100 12/12/19 07:55 12/12/19 07:55 12/11/19 20:00 12/12/19 07:55 12/12/19 07:55 - PIH/Pre-Eclampsia DTR's: 1 + Clonus: Negative Headache: Absent Epigastric Pain: No Visual Changes: No - Lochia Lochia Amount: Scant < 10 ml Lochia Color: Rubra/Red - Abdomen Description: Soft Hernia Present: No Fundal Description: Firm, Midline Fundal Height: u/u - u/2 Objective-Diagnostic Laboratory: 12/11/19 06:31 12/09/19 07:15 Assessment and Plan(PN) - Assessment and Plan (1) IUGR (intrauterine growth restriction) Is this a current diagnosis for this admission?: Yes (2) (spontaneous vaginal delivery) Is this a current diagnosis for this admission?: Yes (3) Pre-eclampsia Qualifiers: Trimester: third trimester Qualified Code(s): O14.93 - Unspecified pre- eclampsia, third trimester Is this a current diagnosis for this admission?: Yes (4) Proteinuria affecting in third trimester Is this a current diagnosis for this admission?: Yes - Time Spent with Patient Time with patient: Less than 15 minutes Medications reviewed and adjusted accordingly: Yes - Disposition Anticipated Discharge: Home Within: within 24 hours
--- NOTE | 2019-12-12 10:32 | PDOC DISCHARGE SUMMARY ---
Impression - Admit/DC Date/PCP Admission Date/Primary Care Provider: 12/08/19 21:59 SANDRA ARMSTRONG MD Discharge Date: 12/12/19 - Discharge Diagnosis (1) IUGR (intrauterine growth restriction) Is this a current diagnosis for this admission?: Yes (2) (spontaneous vaginal delivery) Is this a current diagnosis for this admission?: Yes (3) Pre-eclampsia Is this a current diagnosis for this admission?: Yes (4) Proteinuria affecting in third trimester Is this a current diagnosis for this admission?: Yes - Additional Information Resuscitation Status: Full Code Discharge Diet: As Tolerated, Regular Discharge Activity: Activity As Tolerated, Pelvic Rest Referrals: [facility] [Provider Group] Home Medications: Vit No.130/Iron/Folic [ Tablet] 1 each PO DAILY 12/05/19 HPI Gestational Age: 38.2 Reason(s) for Admission: Induction of Labor, PIH, Group B Strep Positive - female, wt 5-8. 8/9 Admission Note: IUGR Procedures: NST, Ultrasound Intrapartum Procedure(s): Spontaneous Vaginal Delivery Hospital Course Hospital Course: routine Results Laboratory Results: WBC 12.4 10^3/uL (4.0-10.5) H 12/11/19 06:31 RBC 3.86 10^6/uL (3.72-5.28) 12/11/19 06:31 Hgb 11.2 g/dL (12.0-15.5) L 12/11/19 06:31 Hct 32.9 % (36.0-47.0) L 12/11/19 06:31 MCV 85 fl (80-97) 12/11/19 06:31 MCH 29.2 pg (27.0-33.4) 12/11/19 06:31 MCHC 34.2 g/dL (32.0-36.0) 12/11/19 06:31 RDW 15.2 % (11.5-14.0) H 12/11/19 06:31 Plt Count 200 10^3/uL (150-450) 12/11/19 06:31 Lymph % (Auto) 14.3 % (13-45) 12/09/19 21:19 [place] % (Auto) 6.2 % (3-13) 12/09/19 21:19 Eos % (Auto) 0.3 % (0-6) 12/09/19 21:19 Baso % (Auto) 0.5 % (0-2) 12/09/19 21:19 Absolute Neuts (auto) 10.9 10^3/uL (1.7-8.2) H 12/09/19 21:19 Absolute Lymphs (auto) 2.0 10^3/uL (0.5-4.7) 12/09/19 21:19 Absolute Monos (auto) 0.9 10^3/uL (0.1-1.4) 12/09/19 21:19 Absolute Eos (auto) 0.0 10^3/uL (0.0-0.6) 12/09/19 21:19 Absolute Basos (auto) 0.1 10^3/uL (0.0-0.2) 12/09/19 21:19 Seg Neutrophils % 78.7 % (42-78) H 12/09/19 21:19 Sodium 136.5 mmol/L (137-145) L 12/09/19 07:15 Potassium 4.0 mmol/L (3.6-5.0) 12/09/19 07:15 Chloride 105 mmol/L (98-107) 12/09/19 07:15 Carbon Dioxide 24 mmol/L (22-30) 12/09/19 07:15 Anion Gap 8 (5-19) 12/09/19 07:15 BUN 5 mg/dL (7-20) L 12/09/19 07:15 Creatinine 0.55 mg/dL (0.52-1.25) 12/09/19 07:15 Est GFR ( Amer) > 60 (>60) 12/09/19 07:15 Est GFR (MDRD) Non-Af > 60 (>60) 12/09/19 07:15 Glucose 74 mg/dL (75-110) L 12/09/19 07:15 POC Glucose 123 mg/dL (70-110) H 12/09/19 01:15 Uric Acid 6.0 mg/dL (2.5-6.2) 12/09/19 07:15 Calcium 10.2 mg/dL (8.4-10.2) 12/09/19 07:15 Total Bilirubin 0.7 mg/dL (0.2-1.3) 12/09/19 07:15 Direct Bilirubin 0.0 mg/dL (0.0-0.4) 12/09/19 07:15 Neonat Total Bilirubin Not Reportable 12/09/19 07:15 Neonat Direct Bilirubin Not Reportable 12/09/19 07:15 Neonat Indirect Bili Not Reportable 12/09/19 07:15 AST 23 U/L (14-36) 12/09/19 07:15 ALT 22 U/L (<35) 12/09/19 07:15 Alkaline Phosphatase 176 U/L (38-126) H 12/09/19 07:15 Lactate Dehydrogenase 181 U/L (120-246) 12/09/19 07:15 Total Protein 5.9 g/dL (6.3-8.2) L 12/09/19 07:15 Albumin 3.3 g/dL (3.5-5.0) L 12/09/19 07:15 TSH 4.27 uIU/mL (0.47-4.68) 12/08/19 23:06 Urine Color YELLOW 12/08/19 10:15 Urine Appearance SLIGHTLY-CLOUDY 12/08/19 10:15 Urine pH 6.0 (5.0-9.0) 12/08/19 10:15 Ur Specific Golden 1.002 12/08/19 10:15 Urine Protein NEGATIVE mg/dL (NEGATIVE) 12/08/19 10:15 Urine Glucose (UA) NEGATIVE mg/dL (NEGATIVE) 12/08/19 10:15 Urine Ketones NEGATIVE mg/dL (NEGATIVE) 12/08/19 10:15 Urine Blood NEGATIVE (NEGATIVE) 12/08/19 10:15 Urine Nitrite NEGATIVE (NEGATIVE) 12/08/19 10:15 Urine Bilirubin NEGATIVE (NEGATIVE) 12/08/19 10:15 Urine Urobilinogen NEGATIVE mg/dL (<2.0) 12/08/19 10:15 Ur Leukocyte Esterase LARGE (NEGATIVE) H 12/08/19 10:15 Urine Creatinine 18.1 mg/dL (16-327) 12/08/19 10:15 Protein/Creatinin Ratio 1.0 mg/mg (0.0-0.2) H 12/08/19 10:15 Urine Total Protein 18.2 mg/dL (<12) H 12/08/19 10:15 Urine Ascorbic Acid NEGATIVE (NEGATIVE) 12/08/19 10:15 Urine Opiates Screen NEGATIVE 12/08/19 10:15 Urine Methadone Screen NEGATIVE 12/08/19 10:15 Ur Barbiturates Screen NEGATIVE 12/08/19 10:15 Ur Phencyclidine Scrn NEGATIVE 12/08/19 10:15 Ur Amphetamines Screen NEGATIVE 12/08/19 10:15 U Benzodiazepines Scrn NEGATIVE 12/08/19 10:15 Urine Cocaine Screen NEGATIVE 12/08/19 10:15 U Marijuana (THC) Screen NEGATIVE 12/08/19 10:15 RPR NONREACTIVE (NONREACTIVE) 12/08/19 23:06 Blood Type O POSITIVE 12/08/19 23:06 Antibody Screen NEGATIVE 12/08/19 23:06 Plan Health Concerns: hypertension Plan of Treatment: see in office 1 week, rev S&S to report Goals: no complications Time Spent: Less than 30 Minutes
[2019-12-12 10:44] VITALS: BP 142/103
== END 2019-12-12 12:47 | disposition home or self-care (01) | DRG 807 ==
LOC: LC 09:55 → LR 15:00 → 2S 16:39 → OBSVTOIN 21:59 → LR 22:08 → 2S 12-10 05:21
PROVIDERS: ADMIT Student in an Organized Health Care Education/Training Program; ATTEND Obstetrics & Gynecology
PROC: 3E0P7VZ Introduction of Hormone into Female Reproductive, Via Natural or Artificial Opening (ICD-10-PCS; 2019-12-08)
PROC: 10E0XZZ Delivery of Products of Conception, External Approach (ICD-10-PCS; principal; 2019-12-10)
DX: O14.94 Unspecified pre-eclampsia, complicating childbirth (principal); O69.81X0 Labor and delivery complicated by cord around neck, without compression, not applicable or unspecified; O36.5930 Maternal care for other known or suspected poor fetal growth, third trimester, not applicable or unspecified; O99.824 Streptococcus B carrier state complicating childbirth; Z3A.38 38 weeks gestation of pregnancy; Z86.19 Personal history of other infectious and parasitic diseases; Z37.0 Single live birth
CPT/HCPCS: 36415; 59025; 59414; 80053; 80307; 81005; 82570; 82962; 83615; 84156; 84443; 84550; 85025; 85027; 86592; 86850; 86900; 86901; 87070; 94760; C1758; J2300; J2370; J2550; J2590; J3010; J3370; J3490; J7120